=== PATIENT | female | born 1995 | race Caucasian/White ===

== ENCOUNTER 2020-11-23 14:15 | Inpatient (IN) | payer OTHER, BC ==
[~2020-11-23 14:15] MED LIST: Iopamidol-370 76% 500 ML 1 ML ONE
[2020-11-23] MEDS ORDERED: Ondansetron PF 4 MG/2 ML Vial ONE ×2 (14:24→16:53)
[2020-11-23] MEDS ORDERED: HYDROmorphone 0.5 MG/0.5 ML SYRINGE ONE ×2 (14:24→15:16)
[2020-11-23 14:41] LABS: #Eosinphils 0.3 thou/uL (0.0-0.7); #Lymphocytes 2.2 thou/uL (1.20-3.40); #Monocytes 0.7 thou/uL (0.11-0.59); #Neutrophils 10.7 thou/uL (1.40-6.50); %Basophils 0.2 % (0.0-1.0); %Lymphocytes 15.8 % (21.0-51.0); %Monocytes 4.7 % (0.0-10.0); %Neutrophils 77.4 % (42.0-75.0); Hemoglobin 14.3 g/dL (12.0-16.0); Mean Corpuscular HGB CONC 33.5 g/dL (32.0-36.0); Mean Corpuscular Hemoglobin 29.8 pg (27.0-31.0); Mean Platelet Volume 7.1 fL (7.4-10.4); Platelet Count 221 thou/uL (130-400); RBC Distribution Width 12.5 % (11.5-14.5); Red Blood Cell (RBC) Count 4.79 mill/uL (4.20-5.40); White Blood Cell (WBC) Count 13.8 thou/uL (4.8-10.8)
[2020-11-23 14:52] LABS: Prothrombin Time 13.6 sec (12.0-14.7)
[2020-11-23 14:59] LABS: ALT (SGPT) 26 U/L (8-55); AST (SGOT) 21 U/L (5-34); Alkaline Phosphatase 81 U/L (40-110); Anion Gap 13 mmol/L (10-20); BUN (Urea Nitrogen) 8 mg/dL (7.0-18.7); Bilirubin, Total 0.3 mg/dL (0.2-1.2); Calc. Creatinine Clearance 0 mL/min (70-130); Calcium 8.6 mg/dL (7.8-10.44); Carbon Dioxide 21 mmol/L (22-29); Chloride 108 mmol/L (98-107); Globulin 2.6 g/dL (2.4-3.5); Glucose 102 mg/dL (70-105); Potassium 3.8 mmol/L (3.5-5.1); Protein, Total 6.6 g/dL (6.0-8.3); Sodium 138 mmol/L (136-145)
[2020-11-23 15:09] LABS: BHCG - Serum Negative (NEGATIVE); Pregs Control Background? CLEAR/WHITE (CLR/WHITE); Pregs Control Bar Appear? YES (CONTROL BAR)
[2020-11-23] MEDS ORDERED: Ondansetron PF 4 MG/2 ML Vial IVP PRN (15:16)
[2020-11-23] MEDS ORDERED: Dextrose 5% in Water 1,000 ML IV PRN (15:16)
[2020-11-23] MEDS ORDERED: Dextrose 50% Abboject 50 ML SYRINGE SLOW IVP PRN (15:16)
[2020-11-23] MEDS ORDERED: traMADol HCl 50 MG TAB PO PRN (15:24)
[2020-11-23] MEDS ORDERED: Neomycin-Polymyxin 1 ML AMP ONE (16:04)
[2020-11-23] MEDS ORDERED: Fentanyl 100 MCG/2 ML VIAL ONE ×3 (16:24→19:15)
[2020-11-23] MEDS ORDERED: Dexmedetomidine 200 MCG/2 ML VIAL ONE (16:24)
[2020-11-23] MEDS ORDERED: Midazolam HCl 2 mg/2 ml Vial ONE (16:25)
[2020-11-23 16:33] LABS: SARS-CoV-2 NAA Rapid Test Not Detected (NotDetected)
[2020-11-23] MEDS ORDERED: Dexamethasone 20 MG/5 ML VIAL ONE (16:53)
[2020-11-23] MEDS ORDERED: PROPOFOL 200 MG/20 ML VIAL ONE (16:53)
[2020-11-23] MEDS ORDERED: Rocuronium Bromide 10 MG/ML (10ML VIAL) ONE (16:53)
[2020-11-23] MEDS ORDERED: Lidocaine 1% PF 5 ML VIAL ONE (16:53)
[2020-11-23] MEDS ORDERED: Ketorolac Tromethamine 30 MG/ML VIAL ONE (16:53)
[2020-11-23] MEDS ORDERED: HYDROmorphone 2 MG/ML VIAL SLOW IVP PRN (17:16)
[2020-11-23] MEDS ORDERED: Meperidine HCl/PF 25 MG/ML VIAL SLOW IVP PRN (17:16)
[2020-11-23] MEDS ORDERED: Promethazine HCl 25 MG/ML VIAL IM PRN (17:16)
[2020-11-23] MEDS ORDERED: Ondansetron HCl/PF 4 MG/2 ML Vial IVP PRN (17:16)
[2020-11-23] MEDS ORDERED: Promethazine HCl 25 MG/ML VIAL SLOW IVP PRN (17:16)
[2020-11-23] MEDS ORDERED: traMADol HCl 50 MG TAB PO SCH (18:00)
[2020-11-23] MEDS ORDERED: EPINEPHrine 1 MG/ML AMP ONE (18:20)
[2020-11-23] MEDS ORDERED: Bupivacaine 0.25% HCL 30 ML VIAL ONE (18:20)
[2020-11-23] MEDS: Famotidine 20 MG TAB PO SCH (20:47)
[2020-11-23] MEDS: Ibuprofen 200 MG TAB PO SCH (20:47)
[2020-11-23] MEDS: traMADol HCl 50 MG TAB PO PRN (20:47)
[2020-11-23] MEDS: Acetaminophen 325 MG TAB PO SCH (20:50)
[2020-11-23] MEDS ORDERED: CEFAZOLIN 1 GM VIAL SLOW IVP SCH (22:00)
[2020-11-23] MEDS ORDERED: ceFAZolin 1 GM/D5W 1 GM in Premix Bag 1 BAG IVPB SCH (22:00)
[2020-11-23] MEDS ORDERED: Ketorolac Tromethamine 30 MG/ML VIAL IVP SCH (22:45)
[2020-11-23] MEDS: CEFAZOLIN 2 GM in Premix Bag 1 BAG IVPB SCH (22:47)
[2020-11-23] MEDS: Cyclobenzaprine 10 MG TAB PO PRN (22:48)
[2020-11-24] MEDS: Acetaminophen 325 MG TAB PO SCH ×5 (00:10→23:02)
[2020-11-24] MEDS: traMADol HCl 50 MG TAB PO SCH ×3 (00:11→12:09)
[2020-11-24 00:19] VITALS: BMI 37.3
[2020-11-24 05:43] LABS: Hemoglobin 12.8 g/dL (12.0-16.0); Mean Corpuscular HGB CONC 32.3 g/dL (32.0-36.0); Mean Corpuscular Hemoglobin 28.8 pg (27.0-31.0); Mean Corpuscular Volume 88.9 fL (78.0-98.0); Mean Platelet Volume 7.5 fL (7.4-10.4); Platelet Count 256 thou/uL (130-400); RBC Distribution Width 12.5 % (11.5-14.5); Red Blood Cell (RBC) Count 4.46 mill/uL (4.20-5.40); White Blood Cell (WBC) Count 20.6 thou/uL (4.8-10.8)
[2020-11-24] MEDS: Ibuprofen 200 MG TAB PO SCH ×3 (05:49→23:01)
[2020-11-24] MEDS: Cyclobenzaprine 10 MG TAB PO PRN ×3 (05:50→21:05)
[2020-11-24] MEDS: CEFAZOLIN 2 GM in Premix Bag 1 BAG IVPB SCH ×3 (05:53→23:02)
[2020-11-24 06:05] LABS: Anion Gap 9 mmol/L (10-20); BUN (Urea Nitrogen) 9 mg/dL (7.0-18.7); Calc. Creatinine Clearance 188 mL/min (70-130); Calcium 8.8 mg/dL (7.8-10.44); Carbon Dioxide 25 mmol/L (22-29); Chloride 107 mmol/L (98-107); Glucose 119 mg/dL (70-105); Magnesium 1.9 mg/dL (1.6-2.6); Phosphorus 2.8 mg/dL (2.3-4.7); Potassium 4.3 mmol/L (3.5-5.1); Sodium 137 mmol/L (136-145)
[2020-11-24 06:15] LABS: Band 4 % (5-11); Lymphocytes 8 % (21-51); MDiff Complete? YES; Monocytes 1 % (0-10); Neutrophil 87 % (42-75)
[2020-11-24] MEDS: traMADol HCl 50 MG TAB PO PRN (10:12)
[2020-11-24] MEDS: Famotidine 20 MG TAB PO SCH ×2 (10:12→21:05)
[2020-11-24] MEDS ORDERED: Bacitracin 1 PK TOP SCH ×2 (12:00→12:15)
[2020-11-24] MEDS ORDERED: traMADol HCl 50 MG TAB PO SCH ×2 (14:00→16:00)
[2020-11-24] MEDS: Gabapentin 300 MG CAP PO SCH ×2 (16:11→21:06)
[2020-11-24] MEDS: Acetaminophen/Codeine 30-300mg Tablet PO SCH ×2 (16:12→23:01)
[2020-11-24] MEDS: Bacitracin 1 PK TOP SCH ×2 (16:15→21:05)
[2020-11-24] MEDS: Senokot S 8.6-50 MG TAB PO SCH (20:28)
[2020-11-24] MEDS: Docusate 100 MG CAP PO SCH (20:28)
[2020-11-24] MEDS ORDERED: Gabapentin 300 MG CAP PO SCH (21:00)
[2020-11-24] MEDS ORDERED: Enoxaparin Sodium 40 MG/0.4 ML SYRINGE SC SCH (21:00)
[2020-11-25] MEDS ORDERED: Acetaminophen 325 MG TAB PO SCH (02:01)
[2020-11-25] MEDS ORDERED: Acetaminophen/Codeine 30-300mg Tablet PO SCH (02:02)
[2020-11-25] MEDS ORDERED: Ketorolac Tromethamine 30 MG/ML VIAL IVP STA (02:04)
[2020-11-25] MEDS: Acetaminophen/Codeine 30-300mg Tablet PO SCH ×3 (02:57→16:01)
[2020-11-25 05:28] LABS: #Eosinphils 0.2 thou/uL (0.0-0.7); #Lymphocytes 3.9 thou/uL (1.20-3.40); #Monocytes 0.9 thou/uL (0.11-0.59); #Neutrophils 6.8 thou/uL (1.40-6.50); %Basophils 0.4 % (0.0-1.0); %Monocytes 7.3 % (0.0-10.0); %Neutrophils 57.3 % (42.0-75.0); Hemoglobin 11.8 g/dL (12.0-16.0); Mean Corpuscular HGB CONC 33.1 g/dL (32.0-36.0); Mean Corpuscular Volume 90.6 fL (78.0-98.0); Mean Platelet Volume 7.5 fL (7.4-10.4); Platelet Count 210 thou/uL (130-400); RBC Distribution Width 12.7 % (11.5-14.5); Red Blood Cell (RBC) Count 3.93 mill/uL (4.20-5.40); White Blood Cell (WBC) Count 11.9 thou/uL (4.8-10.8)
[2020-11-25] MEDS: Ibuprofen 200 MG TAB PO SCH ×2 (05:49→14:26)
[2020-11-25] MEDS: Acetaminophen 325 MG TAB PO SCH ×2 (05:49→11:53)
[2020-11-25] MEDS: CEFAZOLIN 2 GM in Premix Bag 1 BAG IVPB SCH ×2 (08:26→14:24)
[2020-11-25] MEDS: Bacitracin 1 PK TOP SCH ×2 (08:30→14:26)
[2020-11-25] MEDS: Gabapentin 300 MG CAP PO SCH ×2 (08:30→14:26)
[2020-11-25] MEDS: Famotidine 20 MG TAB PO SCH (08:31)
[2020-11-25] MEDS: Senokot S 8.6-50 MG TAB PO SCH (08:31)
[2020-11-25] MEDS: Docusate 100 MG CAP PO SCH (08:31)
[2020-11-25] MEDS ORDERED: TETANUS AND DIPHTHERIA TOX/PF 0.5 ML DISP.SYRIN IM ONE (09:53)
[2020-11-25] MEDS: Cyclobenzaprine 10 MG TAB PO PRN (11:56)
[2020-11-25] MEDS ORDERED: TETANUS, DIPHTHERIA TOX,ADULT (TDVAX) 0.5 ML VIAL IM ONE (14:30)
[2020-11-25 16:01] VITALS: TEMP 98.3
[2020-11-25 16:03] VITALS: BP 119/81
== END 2020-11-25 16:45 | disposition home or self-care (01) | DRG 464 ==
LOC: ERS 14:15 → SDC/OP 16:30 → SURG B 19:00
PROVIDERS: ADMIT Orthopaedic Surgery; ATTEND Orthopaedic Surgery
PROC: 0JBN0ZZ Excision of Right Lower Leg Subcutaneous Tissue and Fascia, Open Approach (ICD-10-PCS; principal; 2020-11-23)
PROC: 0LQN0ZZ Repair Right Lower Leg Tendon, Open Approach (ICD-10-PCS; 2020-11-23)
PROC: 0SQC0ZZ Repair Right Knee Joint, Open Approach (ICD-10-PCS; 2020-11-23)
PROC: 0QSGXZZ Reposition Right Tibia, External Approach (ICD-10-PCS; 2020-11-23)
DX: S76.121A Laceration of right quadriceps muscle, fascia and tendon, initial encounter (principal); S82.101A Unspecified fracture of upper end of right tibia, initial encounter for closed fracture; J45.909 Unspecified asthma, uncomplicated; S40.811A Abrasion of right upper arm, initial encounter; S60.511A Abrasion of right hand, initial encounter; M06.9 Rheumatoid arthritis, unspecified; F17.210 Nicotine dependence, cigarettes, uncomplicated; D72.829 Elevated white blood cell count, unspecified; Z86.711 Personal history of pulmonary embolism; Z90.49 Acquired absence of other specified parts of digestive tract; Z88.5 Allergy status to narcotic agent; Z88.0 Allergy status to penicillin; V49.49XA Driver injured in collision with other motor vehicles in traffic accident, initial encounter
CPT/HCPCS: 36415; 70110; 70450; 71045; 71260; 72125; 74177; 80048; 80053; 83735; 84100; 84702; 84703; 85025; 85610; 85730; 86850; 86900; 86901; 96365; 96375; 96376; G0390; J0171; J0690; J1100; J1170; J1650; J1885; J2250; J2405; J2704; J3010; Q9967; S0020; U0002; U0005